=== PATIENT | female | born 1980 | race Caucasian/White ===

== ENCOUNTER 2019-07-03 13:39 | Emergency (ER) | payer OTHER ==
[~2019-07-03] VITALS: Ht 167.6 cm; Wt 86.2 kg
[~2019-07-03 13:39] MED LIST: SYNTHROID100 MCG PO
[2019-07-03] MEDS ORDERED: MELOXICAM7.5 MG PO (13:46)
[2019-07-03] MEDS ORDERED: SULFAZINE500 MG PO (13:46)
[2019-07-03] MEDS ORDERED: PLAQUENIL200 MG PO (13:47)
[2019-07-03 14:37] LABS: ABSOLUTE LYMPHOCYTES 1.3 thou/uL (0.8-5.3); ABSOLUTE MONOCYTES 0.5 thou/uL (0.0-1.2); ABSOLUTE NEUTROPHILS 2.7 thou/uL (1.6-8.1); BASOPHILS 1.1 %; EOSINOPHILS 0.5 %; HEMATOCRIT 35.7 % (37.0-47.0); HEMOGLOBIN 11.9 gm/dL (12.0-15.0); LYMPHOCYTES 27.9 %; MCHC 33.5 g/dL (28.0-37.0); MCV 89.8 fL (80.0-100.0); MONOCYTES 11.2 %; MPV 8.8 fl. (7.2-11.1); NUCLEATED RBCS 0 /100WBC; PLATELET COUNT* 177 thou/uL (150-400); POLYS 59.3 %; RBC 3.97 mil/uL (4.20-5.00); RDW-CV 13.6 % (10.5-14.5); WBC 4.5 thou/uL (4.0-11.0)
[2019-07-03 14:44] LABS: CALCIUM 8.9 mg/dL (8.5-10.1); CREATININE 0.9 mg/dL (0.6-1.3); POTASSIUM 3.8 mmol/L (3.5-5.1)
[2019-07-03 14:49] LABS: ALBUMIN 3.4 g/dL (3.4-5.0); TOTAL BILIRUBIN 0.3 mg/dL (<0.1-1.0); TOTAL PROTEIN 6.3 g/dL (6.4-8.2)
[2019-07-03 15:08] LABS: URINE BILIRUBIN NEGATIVE (Negative); URINE BLOOD NEGATIVE (Negative); URINE CLARITY CLEAR; URINE COLOR YELLOW; URINE GLUCOSE-RANDOM NEGATIVE (Negative); URINE KETONES NEGATIVE (Negative); URINE LEUKOCYTES-REFLEX NEGATIVE (Negative); URINE NITRITE-REFLEX NEGATIVE (Negative); URINE PROTEIN NEGATIVE (Negative); URINE UROBILINOGEN 0.2 E.U./dl (0.2-1.0)
--- NOTE | 2019-07-03 15:35 | EKG ---
[place] [address] ELECTROCARDIOGRAM REPORT Name: KEMAL MAC Room: [facility].#: [id number] Admission: 07/03/19 Attend Phys: Discharge: Date of : 78 Date of Service: 07/03/19 1345 Report #: [id number] THIS REPORT FOR: //name// [facility] ED Test Date: 2019-07-03 Test Time: 13:45:29 Pat Name: KEMAL MAC Department: Room: Gender: F Band Maker: [facility] : 1980 Requested By: Minnie Bullock Order Number: [id number] MD: Jason Smalls Measurements Intervals [place] Rate: 78 P: 6 [place]: 156 QRS: -3 QRSD: 102 T: 27 QT: 371 QTc: 423 Interpretive Statements Sinus rhythm No previous ECG available for comparison Electronically Signed On 07-03-2019 15:34:35 INTELLIGENCE SPECIALIST by Jason Smalls [email or web address] <ELECTRONICALLY SIGNED> By: Jason Smalls MD, [facility] 07/03/19 1534 1345 1345 Jason Smalls MD, FACC /EPI
[2019-07-03 17:02] VITALS: BP 112/62
== END 2019-07-03 17:02 | disposition home or self-care (01) ==
LOC: M.ERS 13:39
PROVIDERS: Nurse Practitioner Family
DX: R07.89 Other chest pain (principal); M06.9 Rheumatoid arthritis, unspecified; G62.9 Polyneuropathy, unspecified; Z90.710 Acquired absence of both cervix and uterus